=== PATIENT | female | born 1930 | race Caucasian/White ===

== ENCOUNTER 2017-04-08 23:57 | Inpatient (IN) | payer OTHER ==
[~2017-04-08] VITALS: Ht 154.9 cm; Wt 50.7 kg
[2017-04-09] VITALS (12 sets, daily range): BP systolic 97–167; BP diastolic 50–78; PULSE 72–83; RESP 16–20; TEMP 98.5; Ht 154.9 cm; Wt 50.7 kg
[2017-04-09 00:45] LABS: BASOPHILS % 0.2 % (0.0-2.0); EOSINOPHILS # 0.1 10^3/ul (0.0-0.5); EOSINOPHILS % 0.8 % (0.0-7.0); HEMATOCRIT 40.9 % (37.0-47.0); HEMOGLOBIN 13.3 g/dl (12.0-16.0); LYMPHOCYTES # 1.4 10^3/ul (0.8-2.9); LYMPHOCYTES % 13.6 % (15.0-51.0); MEAN CORPUSCULAR HGB CONC 32.5 g/dl (32.0-37.0); MEAN CORPUSCULAR VOLUME 92.3 fl (82.0-101.0); MONOCYTE # 0.8 10^3/ul (0.3-0.9); NEUTROPHIL # 8.1 10^3/ul (1.6-7.5); NEUTROPHILS % 76.8 % (39.0-77.0); PLATELET COUNT 272 10^3/UL (140-415); RED BLOOD COUNT 4.43 10^6/ul (4.20-5.40); WHITE BLOOD COUNT 10.5 10^3/ul (4.8-10.8)
[2017-04-09 01:21] LABS: ANION GAP 16 (8-16); BLOOD UREA NITROGEN 13 mg/dl (7-20); CALCIUM 9.9 mg/dl (8.4-10.2); CARBON DIOXIDE 27 mmol/L (21-31); CHLORIDE 100 mmol/L (97-110); CREATININE 0.87 mg/dl (0.44-1.00); GLUCOSE 179 mg/dl (70-220); SODIUM 139 mmol/L (135-144)
[2017-04-09 01:31] LABS: TROPONIN-I < 0.012 ng/ml (0.00-0.12)
[2017-04-09] MEDS ORDERED: DEXTROSE 50% 50 ML SYRINGE IV ONE (02:00)
[2017-04-09] MEDS: DEXTROSE 5%-0.45% NACL 1,000 ML IV SCH ×2 (02:17→09:24)
[2017-04-09 02:51] LABS: ADD UMIC YES; UR ASCORBIC ACID NEGATIVE (NEGATIVE); UR BACTERIA FEW /HPF (NONE SEEN); UR BILIRUBIN (Dip) NEGATIVE (NEGATIVE); UR BLOOD (Dip) NEGATIVE (NEGATIVE); UR CLARITY CLEAR (CLEAR); UR COLOR YELLOW (YELLOW); UR GLUCOSE (Dip) 2+ mg/dL (NEGATIVE); UR KETONES (Dip) NEGATIVE (NEGATIVE); UR LEUKOCYTE ESTERASE (Dip) 3+ Leu/ul (NEGATIVE); UR NITRITE (Dip) NEGATIVE (NEGATIVE); UR RBC 2 /HPF (0-5); UR SPECIFIC GRAVITY (Dip) 1.006 (1.003-1.030); UR SQUAMOUS EPITHELIAL CELL FEW /HPF (FEW); UR TOTAL PROTEIN (Dip) NEGATIVE (NEGATIVE); UR UROBILINOGEN (Dip) NEGATIVE (NEGATIVE)
--- NOTE | 2017-04-09 03:19 | HP ---
Date/Time of Note Date/Time of Note DATE: 04/09/17 TIME: 03:12 Assessment/Plan VTE Prophylaxis VTE Prophylaxis Intervention: SCD's Assessment/Plan Chief Complaint/Hosp Course This is a 87-year-old female being admitted to the ICU floor for: #1 altered level of consciousness: Likely secondary to hypoglycemia and/or underlying urinary tract infection. Patient does appear to be having a poor appetite and continuing to take her diabetes medications. At the current time we will need to monitor her diet as well as her daily medication routine. Based on patient's account of the events he does appear to the patient may have had an episode of loss of consciousness/syncope. At the current time will check a stat CT of the head without contrast. Will check a echocardiogram. As well as carotid Dopplers. Will monitor patient's blood sugars every 1 hours. Will put patient on hypoglycemia protocol. #2 diabetes mellitus: We will check hemoglobin A1c, please see #1 for further information. Will hold patient's metformin and sulfonylureas at the current time. #3 asthma: We will resume patient's home inhalers #4 DVT GI prophylaxis: SCDs, Protonix Further treatment strategy will be implemented as per the clinical course Problems: HPI/ROS Admit Date/Time Admit Date/Time Hx of Present Illness Chief complaint: Low blood sugar, LOC This is a 87-year-old female who presents today to the emergency department status post low blood sugars in LOC. Patient at the bedside states that her family told her that they noticed her being more lethargic and weak and that she was not responding at home and had low blood sugars and the paramedics were called. Patient on the ambulance ride over here became more aware and conscious when asked where she was going and she was told she was taken to the hospital because of low blood sugars. Patient states that she has had a poor appetite over the last few days however she does still to continue to take her diabetes medications on a regular basis. Apparently she states that her family reported that she was not responding to them and she was foaming at the mouth. Patient denies any chest pain or shortness of breath or fevers. Again patient does report that she has had a poor appetite over the last few days however she is to continue to take her medication. Allergies: NKDA Medications: See MICHELE ABBASI Const: Per HPI Eyes : No pain discharge or redness or change in visual acuity ENT: No pain, sore throat, congestion, congestion, dysphagia or discharge Respiratory: No shortness of breath, cough, sputum, wheezing, or pleuritic pain Cardiovascular: No chest pain, palpitation, PND, or edema GI : no change in appetite, abdominal pain, nausea, vomiting, diarrhea, constipation, or change in the color his stool Genitourinary: No dysuria, hematuria, flank pain , discharge or CVA tenderness Musculoskeletal: No joint pain, back pain, neck pain, restricted range of motion in neck or joints Skin: No rash, bruising or hives Neuro: As per HPI Endocrine: As per HPI Psych: No hallucination, depression, anxiety or suicidal ideation PMH/Family/Social Past Medical History Diabetes, asthma, diabetic neuropathy Past Surgical History 1, abdominal surgery? Family History Significant Family History: diabetes Social History Alcohol Use: none Smoking Status: Former smoker (Former heavy smoker.) Drug Use: none Exam/Review of Systems Vital Signs Vitals Vital Signs Date Time Temp Pulse Resp B/P Pulse Ox O2 Delivery O2 Flow Rate FiO2 04/09/17 02:36 98.1 73 16 138/86 100 Exam Exam General: She is a very pleasant female currently lying in bed in no acute distress. She is answering questions appropriately. HEENT: Atraumatic, normocephalic. The pupils are equal, round and reactive. Extraocular motor are intact Neck: Supple with full range of motion. No rigidity or meningismus Chest: Nontender Lungs: Clear to auscultation bilaterally no crackles rales or wheezing Heart: Normal S1-S2, Regular rhythm and rate. No murmur, S3, or S4 Abdomen: Soft , nontender, nondistended , bowel sounds are present. No guarding no rebound tenderness , No masses or organomegaly. No costovertebral temporal angle mass Extremities: Normal to inspection, no edema no cyanosis Neurologic: Normal mental status, speech normal, cranial nerves II through XII are intact, motor and sensory are intact, gait was not assessed secondary to patient's clinical condition. Labs Result Diagram: 04/09/17 0018 04/09/17 0018 Medications Medications Current Medications Dextrose/Sodium Chloride (D5-1/2ns) 1,000 ml @ 150 mls/hr Q6H40M IV Last administered on 04/09/17t 02:17; Admin Dose 150 MLS/HR; Start 04/09/17 at 02: 00 HOSSEIN CLARK Apr 09, 2017 03:19
[2017-04-09] MEDS ORDERED: ONDANSETRON 4 MG TAB PO PRN (03:30)
[2017-04-09] MEDS ORDERED: DEXTROSE 50% 50 ML SYRINGE IV PRN ×3 (03:30→10:00)
[2017-04-09] MEDS ORDERED: GLIP-95 PO (04:13)
[2017-04-09] MEDS ORDERED: METF500T4 PO (04:13)
[2017-04-09] MEDS ORDERED: BECL8.7H NASAL (04:13)
[2017-04-09] MEDS ORDERED: GABA100C14 PO (04:13)
--- NOTE | 2017-04-09 04:29 | ERD ---
ER Documentation Chief Complaint Chief Complaint BIBLeticia RA90 HPI 87-year-old female is brought in for acute altered mental status with almost comatose status with blood sugar of 29. She takes glipizide and metformin. Paramedics gave her D50 which brought her sugar up her mental status improved. States that she felt a little lightheaded and dizzy in the evening as well.. She has been eating a little less. Feels better now. Does feel slightly lightheaded. Denies any chest pain, shortness of breath, fever chills preceding the event. ROS All systems reviewed and are negative except as per history of present illness. Medications Home Meds Reported Medications Metformin* (Glucophage*) 500 Mg Tab, 500 MG PO WITH MEALS, #90 TAB 04/09/17 Glipizide* (Glipizide*) 10 Mg Tablet, 10 MG PO DAILY, TAB 04/09/17 Gabapentin* (Gabapentin*) 100 Mg Capsule, 100 MG PO BID, #90 CAP 04/09/17 Beclomethasone Dipropionate (QNASL) 8.7 Gm Hfa.aer.ad, 2 SPRAYS NASAL DAILY, #1 BOTTLE PER NOSTRIL 04/09/17 Allergies Allergies: Coded Allergies: No Known Allergy (Unverified , 04/09/17) PMhx/Soc Hx Miscellaneous Medical Probl: Yes (DM) Hx Alcohol Use: No Hx Substance Use: No Hx Tobacco Use: Yes Smoking Status: Former smoker (Former heavy smoker.) Physical Exam Vitals Vital Signs Date Time Temp Pulse Resp B/P Pulse Ox O2 Delivery O2 Flow Rate FiO2 04/09/17 03:51 98.5 76 16 152/67 98 Room Air 04/09/17 02:36 98.1 73 16 138/86 100 04/09/17 02:18 98.1 72 18 156/113 100 04/09/17 00:25 97.4 74 16 139/111 04/09/17 00:00 97.4 69 18 203/84 98 Physical Exam Const: [] Mild distress Head: Atraumatic Eyes: Normal Conjunctiva EOMI, PERRLA ENT: Normal External Ears, Nose and Mouth. Neck: Full range of motion..~ No meningismus. Resp: Clear to auscultation bilaterally Cardio: Regular rate and rhythm, no murmurs Abd: Soft, non tender, non distended. Normal bowel sounds Skin: No petechiae or rashes Back: No midline or flank tenderness Ext: No cyanosis, or edema Neur: Awake and alert and oriented 3, cranial 2 through 12 intact, no cerebellar deficits, normal gait Psych: Normal Mood and Affect Result Diagram: 04/09/17 0018 04/09/17 0018 Results 24 hrs Laboratory Tests Test 04/09/17 00:18 04/09/17 00:24 04/09/17 01:33 04/09/17 01:44 White Blood Count 10.510^3/ul Red Blood Count 4.4310^6/ul Hemoglobin 13.3g/dl Hematocrit 40.9% Mean Corpuscular Volume 92.3fl Mean Corpuscular Hemoglobin 30.0pg Mean Corpuscular Hemoglobin Concent 32.5g/dl Red Cell Distribution Width 13.0% Platelet Count 76717^3/UL Mean Platelet Volume 10.0fl Neutrophils % 76.8% Lymphocytes % 13.6% Monocytes % 8.0% Eosinophils % 0.8% Basophils % 0.2% Nucleated Red Blood Cells % 0.0/100WBC Neutrophils # 8.110^3/ul Lymphocytes # 1.410^3/ul Monocytes # 0.810^3/ul Eosinophils # 0.110^3/ul Basophils # 0.010^3/ul Nucleated Red Blood Cells # 0.010^3/ul Sodium Level 139mmol/L Potassium Level 4.0mmol/L Chloride Level 100mmol/L Carbon Dioxide Level 27mmol/L Anion Gap 16 Blood Urea Nitrogen 13mg/dl Creatinine 0.87mg/dl Glucose Level 179mg/dl Calcium Level 9.9mg/dl Troponin I < 0.012ng/ml Bedside Glucose 162mg/dL 92mg/dL Urine Color YELLOW Urine Clarity CLEAR Urine pH 7.0 Urine Specific [place] 1.006 Urine Ketones NEGATIVEmg/dL Urine Nitrite NEGATIVEmg/dL Urine Bilirubin NEGATIVEmg/dL Urine Urobilinogen NEGATIVEmg/dL Urine Leukocyte Esterase 3+Christel/ul Urine Microscopic RBC 2/HPF Urine Microscopic WBC 29/HPF Urine Squamous Epithelial Cells FEW/HPF Urine Bacteria FEW/HPF Urine Hemoglobin NEGATIVEmg/dL Urine Glucose 2+mg/dL Urine Total Protein NEGATIVEmg/dl Test 04/09/17 02:04 04/09/17 02:31 04/09/17 03:46 Bedside Glucose 105mg/dL 133mg/dL 148mg/dL Current Medications Medications (Trade) Dose Ordered Sig/Saul Route PRN Reason Start Time Stop Time Status Last Admin Dose Admin Dextrose 25 ml 25 ml ONCE ONCE IV 04/09/17 02:00 04/09/17 02:01 DC Dextrose/Sodium Chloride (D5-1/2ns) 1,000 ml @ 150 mls/hr Q6H40M IV 04/09/17 02:00 04/09/17 02:17 Ondansetron HCl (Zofran Tab) 4 mg Q6H PRN PO NAUSEA AND/OR VOMITING 04/09/17 03:30 Acetaminophen (Tylenol Liquid) 650 mg Q6H PRN PO PAIN LEVEL 1-3 OR FEVER 04/09/17 03:30 Pantoprazole (Protonix Iv) 40 mg DAILY@06 IV 04/09/17 06:00 Miscellaneous Information (* Miscellaneous Pharmacy Order) HYPOGLYCEMIA PROTOCOL w... ONCE ONCE XX 04/09/17 03:30 04/09/17 03:31 DC Miscellaneous Information (* Miscellaneous Pharmacy Order) Discontinue all previ... ONCE ONCE XX 04/09/17 03:30 04/09/17 03:31 DC Dextrose 25 ml 25 ml Q2 PRN IV DECREASED GLUCOSE 04/09/17 03:30 Ceftriaxone Sodium (Rocephin) 50 ml @ 100 mls/hr Q24H IVPB 04/09/17 04:00 Procedures/MDM Recurrent severe hypoglycemia on sulfonylurea. Severe hypoglycemia initially. Patient ate in the emergency room her blood sugar was up to 163 but it quickly dropped to the 90s. Give her half amp of dextrose and placed on a D5 drip. Cup was done to see if there is any cardiac ischemia as a result of the glucose deprivation. No signs of cardiac ischemia. He is feeling well on D5 drip. Glucose was checked every hour in the emergency room which found a recurrent hypoglycemia. No signs of acute infection. She is going to be admitted to the ICU under Dr. Oquendo. EKG interpretation: Normal sinus rhythm rate 62, low voltage, mild T-wave flattening likely secondary to low voltage, no ST or T-wave changes concerning for acute ischemia. Abnormal EKG hard candy spinner interpretation: Normal sinus rhythm alternating with sinus bradycardia. No arrhythmias Care time greater than 35 minutes: This includes multiple visits patient's bedside for repeat examinations of patient with recurrent hypoglycemia on sulfonylurea, use of D50, use of D5 drip, discussion with patient and admitting doctor, review of chart. This does not include any billable procedures. Departure Diagnosis: Primary Impression: Hypoglycemia secondary to sulfonylurea Additional Impression: Altered level of consciousness Condition: Serious JUDE LAU DO Apr 09, 2017 04:29
--- NOTE | 2017-04-09 05:48 | RADRPT ---
PROCEDURE: CT Brain without contrast. CLINICAL INDICATION: Fainted. Hypoglycemia. TECHNIQUE: CT scan of the brain was performed on a multidetector high-resolution CT scan. Axial im aging was obtained of the brain without contrast administration. Coronal and sagittal reformatted i mages were obtained from the axial source images. Standard CT scan of the head without contrast prot ocols were performed. The total exam CTDI equals 42.16 mGy and the total exam DLP equals 810.25 mGy-cm. One or more of the following dose reduction techniques were used: - Automated exposure control. - Adjustment of the mA and/or kV according to patient size. Use of iterative reconstruction technique. Dicom images are available COMPARISON: None. FINDINGS: The ventricular system and peripheral CSF spaces are proportionately prominent consistent with mild to moderate generalized cerebral volume loss. Extensive periventricular and subcortical deep white m atter changes consistent with chronic microvascular ischemic disease. Removed. Infarct involving the left caudate nucleus. Negative for intracranial masses hemorrhages or midline shift. The argueta-white matter junction is unremarkable. There is hard atherosclerotic plaque involving the cavernous carot id arteries. The bones of the calvarium are intact. The visualized paranasal sinuses and mastoids ar e unremarkable. IMPRESSION: 1. Mild to moderate generalized cerebral volume loss and extensive nonspecific chronic microvascula r ischemic disease. 2. Remote prior infarct left caudate nucleus. 3. Extensive nonspecific chronic microvascular ischemic disease. 4. Negative intracranial masses hemorrhages or midline shift. RPTAT:AAJJ Physician Demetrice Date Time Electronically viewed and signed by Physician Demetrice on 04/09/2017 05:48 BM/
[2017-04-09] MEDS: CEFTRIAXONE 1 GM/50 ML (PMX) 50 ML IVPB SCH (06:36)
[2017-04-09] MEDS: PANTOPRAZOLE 40 MG INJ IV SCH (06:36)
[2017-04-09] MEDS ORDERED: ACCU-CHEK XX SCH (08:00)
[2017-04-09 08:27] LABS: BASOPHILS % 0.2 % (0.0-2.0); EOSINOPHILS % 0.2 % (0.0-7.0); HEMATOCRIT 40.2 % (37.0-47.0); LYMPHOCYTES # 1.9 10^3/ul (0.8-2.9); LYMPHOCYTES % 23.2 % (15.0-51.0); MEAN CORPUSCULAR HEMOGLOBIN 29.9 pg (29.0-33.0); MEAN CORPUSCULAR HGB CONC 32.3 g/dl (32.0-37.0); MEAN CORPUSCULAR VOLUME 92.4 fl (82.0-101.0); MEAN PLATELET VOLUME 10.3 fl (7.4-10.4); MONOCYTE # 0.6 10^3/ul (0.3-0.9); NEUTROPHIL # 5.6 10^3/ul (1.6-7.5); PLATELET COUNT 258 10^3/UL (140-415); RED BLOOD COUNT 4.35 10^6/ul (4.20-5.40); RED CELL DISTRIBUTION WIDTH 13.2 % (11.5-14.5); WHITE BLOOD COUNT 8.2 10^3/ul (4.8-10.8)
[2017-04-09 08:40] LABS: CALCIUM 9.8 mg/dl (8.4-10.2); CREATININE 0.9 mg/dl (0.44-1.00); POTASSIUM 4.4 mmol/L (3.5-5.1)
--- NOTE | 2017-04-09 09:08 | RADRPT ---
PROCEDURE: Carotid ultrasound CLINICAL INDICATION: Syncope, carotid bruits TECHNIQUE: Jackson scale, color doppler, spectral doppler ultrasound of the bilateral carotid and douglas tebral arteries. This study indirectly references the measurement of the distal ICA diameter as the denominator for s tenosis measurement. Validated velocity measurements with angiographic measurements, velocity criter ia are extrapolated from diameter data as defined by: *Cartoid artery stenosis: jackson-scale and Doppl er US diagnosis. Society of Radiologists in Ultrasound Consensus Conference. Radiology 2003; 229: 34 0-346. SRU Consensus Conference Criteria for the Diagnosis of Carotid Artery Stenosis* Degree of Stenosis, % ICA PSV, cm/sec Plaque Estimate, % ICA/CCA PSV Ratio Normal <125 None <2.0 <50 <125 <50 <2.0 50 69 125-230 >50 2.0-4.0 >70 but less than near occlusion >230 >50 <4.0 Near occlusion High, low, or undetectable Visible Variable Total occlusion Undetectable Visible, no detectable lumen Not applicable COMPARISON: No prior studies are available for comparison. FINDINGS: Location Right CCA32 - 57 cm/sec Prox ICA 58 cm/sec Mid ICA43 cm/sec Dist ICA45 cm/sec ECA59 cm/sec ICA/CCA1.5 Left CCA43 - 55 cm/sec Prox ICA 58 cm/sec Mid ICA39 cm/sec Dist ICA45 cm/sec ECA59 cm/sec ICA/CCA1.4 Plaque burden: Calcified plaques present involving the left carotid system. Antegrade flow is seen within the vertebral arteries bilaterally. IMPRESSION: Calcified plaque present within the left internal carotid artery without flow acceleration compatibl e with less than 50% stenosis. No evidence of significant plaque within the right carotid system. RPTAT: AADD .Chad Byers MD, Date Time Electronically viewed and signed by .Chad Byers MD, on 04/09/2017 09:08 .B/
[2017-04-09] MEDS ORDERED: GLUCOSE GEL 15 GRAM TUBE BUCCAL PRN (10:00)
[2017-04-09] MEDS ORDERED: GLUCOSE GEL 15 GRAM TUBE PO PRN ×2 (10:00)
[2017-04-09] MEDS ORDERED: GLUCAGON 1 MG INJ IM PRN (10:00)
[2017-04-09] MEDS: INSULIN ASPART [NOVOLOG] 3 ML PEN SC SCH ×3 (11:40→21:00)
[2017-04-09] MEDS: GABAPENTIN 100 MG CAP PO SCH ×2 (14:18→21:41)
[2017-04-09] MEDS: FLUTICASONE 0.05% 16 GM NAS SPRAY NASAL SCH (17:41)
[2017-04-10] MEDS ORDERED: ACCU-CHEK XX SCH (02:00)
[2017-04-10 03:46] VITALS: BP 132/77; RESP 20
[2017-04-10] MEDS: CEFTRIAXONE 1 GM/50 ML (PMX) 50 ML IVPB SCH (04:29)
[2017-04-10 05:28] LABS: BASOPHILS % 0.6 % (0.0-2.0); EOSINOPHILS # 0.1 10^3/ul (0.0-0.5); EOSINOPHILS % 1.1 % (0.0-7.0); HEMATOCRIT 37.8 % (37.0-47.0); HEMOGLOBIN 12.3 g/dl (12.0-16.0); LYMPHOCYTES # 2.3 10^3/ul (0.8-2.9); LYMPHOCYTES % 36.4 % (15.0-51.0); MEAN CORPUSCULAR HEMOGLOBIN 29.9 pg (29.0-33.0); MEAN CORPUSCULAR HGB CONC 32.5 g/dl (32.0-37.0); MEAN CORPUSCULAR VOLUME 91.7 fl (82.0-101.0); MONOCYTE # 0.5 10^3/ul (0.3-0.9); MONOCYTES % 8.5 % (0.0-11.0); NEUTROPHIL # 3.4 10^3/ul (1.6-7.5); NEUTROPHILS % 53.1 % (39.0-77.0); PLATELET COUNT 245 10^3/UL (140-415); RED BLOOD COUNT 4.12 10^6/ul (4.20-5.40); RED CELL DISTRIBUTION WIDTH 13.4 % (11.5-14.5); WHITE BLOOD COUNT 6.4 10^3/ul (4.8-10.8)
[2017-04-10] MEDS: PANTOPRAZOLE 40 MG INJ IV SCH (05:44)
[2017-04-10 05:58] LABS: ALBUMIN 3.7 g/dl (3.3-4.9); BILIRUBIN,INDIRECT 0.3 mg/dl (0-1.1); BILIRUBIN,TOTAL 0.3 mg/dl (0.2-1.3); CALCIUM 9.6 mg/dl (8.4-10.2); CREATININE 1.06 mg/dl (0.44-1.00); MAGNESIUM 1.9 mg/dl (1.7-2.5); PHOSPHORUS 3.5 mg/dl (2.5-4.9); POTASSIUM 4.3 mmol/L (3.5-5.1)
[2017-04-10 06:23] LABS: THYROID STIMULATING HORMONE 1.07 MIU/L (0.465-4.680)
[2017-04-10] MEDS: INSULIN ASPART [NOVOLOG] 3 ML PEN SC SCH ×2 (07:50→11:40)
[2017-04-10 07:51] VITALS: BP 114/54; RESP 20
[2017-04-10 07:56] VITALS: BP 154/67; RESP 20
[2017-04-10] MEDS: GABAPENTIN 100 MG CAP PO SCH (08:41)
[2017-04-10] MEDS: ACETAMINOPHEN 650MG/20.3ML CUP PO PRN ×2 (08:42→16:37)
[2017-04-10] MEDS: FLUTICASONE 0.05% 16 GM NAS SPRAY NASAL SCH (08:44)
--- NOTE | 2017-04-10 09:02 | RADRPT ---
Echocardiogram Report Patient Name: GISELA PINEDA Gender: Female Date: 1930 Study Date: 09-Apr-2017 [employer] Teacher: MAUREEN Location: 107 Ref. Physician: HOSSEIN CLARK Quality: Good Procedures: Transthoracic echocardiogram with complete 2D, M-Mode, and doppler examination. Indications: Syncope. 2D/M Mode Doppler Measurement Value Normal Ranges Measurement Value Normal Ranges AoR Diam MM 2.8 cm SOLIS Vmax 2.3 cm2 ACS MM 1.8 cm SOLIS VTI 2.3 cm2 LA/Ao MM 1.0 AV Mean [place] 0.8 m/sec LA Dimen MM 2.8 cm AV Mean PG 2.4 mmHg LVIDd 2D 3.9 3.5 - 5.6 cm AV Peak [place] 1.0 m/sec LVIDs 2D 2.9 2.1 - 4.1 cm AV Peak PG 3.6 mmHg LVPWd 2D 1.0 0.6 - 1.1 cm AV VTI 21.7 cm IVSd 2D 1.0 0.6 - 1.1 cm LVOT Peak [place] 0.8 m/sec EDV 2D 64.2 cm3 LVOT Peak PG 2.7 mmHg ESV 2D 24.2 cm3 MV E Peak [place] 0.7 m/sec EF 2D 50.0 50.0 - 65.0 % MV A Peak [place] 1.0 m/sec LVOT Diam 1.8 cm MV E/A 0.7 MV Decel Time 180 msec MV Decel [place] 4 MV E/A 0.7 Findings Left Ventricle: Normal left ventricular systolic function. Normal left ventricular cavity size. Normal left ventricular wall thickness. Ejection fraction is visually estimated at 55 %. Tissue Doppler/Mitral Doppler indices are consistent with impaired relaxation (Stage I diastolic dysfunction). Right Ventricle: Normal right ventricular size. Normal right ventricular systolic function. Left Atrium: There is mild enlargement of left atrium. Right Atrium: The right atrium is normal in size. Mitral Valve: Normal appearance and function of the mitral valve with trace physiologic regurgitation. Aortic Valve: Normal appearance of the aortic valve. No significant aortic stenosis or insufficiency. Tricuspid Valve: Normal appearance and function of the tricuspid valve with trace physiologic regurgitation. Unable to obtain RVSP due to minimal presence of tricuspid regurgitation. Pulmonic Valve: Normal pulmonic valve appearance. Pericardium: Normal pericardium with no significant pericardial effusion. Aorta: Normal aortic root. IVC: Normal size and normal respiratory collapse consistent with normal right atrial pressure. Conclusions Normal left ventricular systolic function. Normal left ventricular cavity size. Normal left ventricular wall thickness. Ejection fraction is visually estimated at 55 %. Tissue Doppler/Mitral Doppler indices are consistent with impaired relaxation (Stage I diastolic dysfunction). No significant valvular stenosis or regurgitation seen. Unable to obtain RVSP due to minimal presence of tricuspid regurgitation. Normal size and normal respiratory collapse consistent with normal right atrial pressure. Electronically Signed By: Josemanuel Valencia 10-Apr-2017 09:01:46 -0800 Patient Name: GISELA PINEDA Study Date: 09-Apr-[id number]
--- NOTE | 2017-04-10 10:30 | PN ---
Date/Time of Note Date/Time of Note DATE: 04/10/17 TIME: 10:22 Assessment/Plan VTE Prophylaxis VTE Prophylaxis Intervention: SCD's Lines/Catheters IV Catheter Type (from Nrs): Saline Lock Assessment/Plan Assessment/Plan This is a 87-year-old female being admitted to the ICU floor for: #1 altered level of consciousness 2/2 hypoglycemia from sulfonylurea use: resolved #2 diabetes mellitus: HBA1C 6.O #3 asthma: We will resume patient's home inhalers #4 UTI: Gram neg rods: f/u final ID and sensitivity D/c on abx and off hypoglycemics for diet control only for now and close outpt f/u with PCP Subjective 24 Hr Interval Summary Free Text/Dictation Doing much better Exam/Review of Systems Vital Signs Vitals Vital Signs Date Time Temp Pulse Resp B/P Pulse Ox O2 Delivery O2 Flow Rate FiO2 04/10/17 07:56 97.5 63 20 154/67 96 04/09/17 10:00 Room Air Intake and Output 04/09/17 04/09/17 04/10/17 15:00 23:00 07:00 Intake Total 620 ml 420 ml 850 ml Output Total 300 ml 900 ml 1200 ml Balance 320 ml -480 ml -350 ml Exam Constitutional: alert, frail, oriented, No distress Head: normocephalic Eyes: PERRL ENMT: mucosa pink and moist Neck: supple Respiratory: clear to auscultation, No labored breathing Cardiovascular: regular rate and rhythm, No murmurs/extra sounds Gastrointestinal: bowel sounds, non-tender, soft Extremities: No edema Neurological: nl mental status Additional Comments Said to be ambulance with minimal assist Results Result Diagram: 04/10/17 0502 04/10/17 0502 Results 24 hrs Laboratory Tests Test 04/09/17 13:23 04/09/17 17:44 04/09/17 21:40 04/10/17 05:02 Bedside Glucose 115 120 107 White Blood Count 6.4 # Red Blood Count 4.12 L Hemoglobin 12.3 Hematocrit 37.8 Mean Corpuscular Volume 91.7 Mean Corpuscular Hemoglobin 29.9 Mean Corpuscular Hemoglobin Concent 32.5 Red Cell Distribution Width 13.4 Platelet Count 245 Mean Platelet Volume 10.0 Neutrophils % 53.1 Lymphocytes % 36.4 Monocytes % 8.5 Eosinophils % 1.1 Basophils % 0.6 Nucleated Red Blood Cells % 0.0 Neutrophils # 3.4 Lymphocytes # 2.3 Monocytes # 0.5 Eosinophils # 0.1 Basophils # 0.0 Nucleated Red Blood Cells # 0.0 Sodium Level 141 Potassium Level 4.3 Chloride Level 106 Carbon Dioxide Level 26 Anion Gap 13 Blood Urea Nitrogen 14 Creatinine 1.06 H Glucose Level 132 Calcium Level 9.6 Phosphorus Level 3.5 Magnesium Level 1.9 Total Bilirubin 0.3 Direct Bilirubin 0.00 Indirect Bilirubin 0.3 Aspartate Amino Transf (AST/SGOT) 29 Alanine Aminotransferase (ALT/SGPT) 33 Alkaline Phosphatase 76 Total Protein 7.0 Albumin 3.7 Thyroid Stimulating Hormone (TSH) 1.070 Test 04/10/17 08:43 Bedside Glucose 119 Medications Medications Current Medications Ondansetron HCl (Zofran Tab) 4 mg Q6H PRN PO NAUSEA AND/OR VOMITING; Start at 03:30 Acetaminophen (Tylenol Liquid) 650 mg Q6H PRN PO PAIN LEVEL 1-3 OR FEVER Last administered on 04/10/17 08:42; Admin Dose 650 MG; Start 04/09/17 at 03:30 Pantoprazole 40 mg 40 mg DAILY@06 IV Last administered on 04/10/17 05:44; Admin Dose 40 MG; Start 04/09/17 at 06:00 Ceftriaxone Sodium (Rocephin) 50 ml @ 100 mls/hr Q24H IVPB Last administered on 04/10/17 04:29; Admin Dose 100 MLS/HR; Start 04/09/17 at 04:00 Diagnostic Test (Pha) (Accu-Chek) 1 ea 02 XX ; Start 04/10/17 at 02:00 Miscellaneous Information 1 ea NOTE XX ; Start 04/09/17 at 10:00 Glucose (Glutose) 15 gm Q15M PRN PO DECREASED GLUCOSE; Start 04/09/17 at 10:00 Glucose (Glutose) 22.5 gm Q15M PRN PO DECREASED GLUCOSE; Start 04/09/17 at 10: 00 Dextrose (D50w Syringe) 25 ml Q15M PRN IV DECREASED GLUCOSE; Start 04/09/17 at 10:00 Dextrose (D50w Syringe) 50 ml Q15M PRN IV DECREASED GLUCOSE; Start 04/09/17 at 10:00 Glucagon (Glucagen) 1 mg Q15M PRN IM DECREASED GLUCOSE; Start 04/09/17 at 10: 00 Glucose (Glutose) 15 gm Q15M PRN BUCCAL DECREASED GLUCOSE; Start 04/09/17 at 10:00 Fluticasone Propionate (Flonase 0.05% Nasal) 2 spray DAILY NASAL Last administered on 04/10/17 08:44; Admin Dose 2 SPRAY; Start 04/09/17 at 16:00 Gabapentin (Neurontin) 100 mg BID PO Last administered on 04/10/17 08:41; Admin Dose 100 MG; Start 04/09/17 at 13:00 PAULINE CANTU Apr 10, 2017 10:30
[2017-04-10] MEDS ORDERED: AMOX1TAB9 PO (14:17)
--- NOTE | 2017-04-10 14:21 | PDOCDIS ---
Discharge Instructions DIAGNOSIS Discharge Diagnosis Hypoglycemia Urinary tract infection CONDITION Patient Condition: Stable ACTIVITY: Activity Restrictions: Slowly Increase Activity Rest between Activity OTHER ORDERS: Other Orders: * Quit alcohol use and tobacco use * Stop taking your diabetic medicines for now * See your primary care doctor as soon as possible * Review your medication list with your nurse before leaving and if you need new prescriptions please let your nurse know. * I have made changes to your home medications or given you new prescriptions, please let your primary doctor know as well. * Stay compliant with your medications and report any side effects to your PCP or pharmacist. * Return to the ER if you have any concerns and cannot reach your doctors or call your insurance company, they usually have a nurse that can help you. PAULINE CANTU. Apr 10, 2017 14:21
--- NOTE | 2017-04-10 14:26 | DS ---
Date/Time of Note Date/Time of Note DATE: 04/10/17 TIME: 14:21 Discharge Summary Admission/Discharge Info Admit Date/Time Apr 09, 2017 at 02:30 Discharge Date/Time Discharge Diagnosis #1 altered level of consciousness 2/2 hypoglycemia from sulfonylurea use: resolved #2 diabetes mellitus: HBA1C 6.O #3 asthma: We will resume patient's home inhalers #4 Gram negative UTI #5: Patient also just picked up the habit of drinking beer and smoking tobacco per family: counselled to quit . Procedures See hospital course . Hospital Course 87-year-old female who was brought in for altered level of consciousness and was found to be persistently hypoglycemic in the emergency room. 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 She was initially admitted to the intensive care unit for close monitoring. However just with fluid therapy and hydration her mental status improved and is doing a urinalysis came back highly suggestive of a urinary tract infection and she was empirically started on antibiotics for that cultures grew gram-negative rods. She has done well and all her oral hypoglycemics were held. Of note is that patient is on glipizide and metformin. Also family tells us that the patient recently become a habit of drinking beer and smoking cigarettes even while staying compliant with her medication and her appetite has also weaned. This could be secondary to the underlying infection however at this time to be on the safe side patient is being discharged off all hypoglycemics, and I recommended that she follow-up with her primary care physician within the next 1 week for continued management. In-house, patient has done well despite no hypoglycemics, hemoglobin A1c came back at 6.0 which is great, hence at this time no oral hypoglycemics as necessary, patient to be discharged on diet control only. He has a communicated in detail to the patient with the help of a [place] speaking hourly sign language interpreter and have also communicated this to the patient's grandson in detail. Also encouraged patient not to drink alcohol with her medications. However the patient is 87 years old, I am not sure how compliant she will be. . Home Meds Reported Medications Metformin* (Glucophage*) 500 Mg Tab, 500 MG PO WITH MEALS, #90 TAB 04/09/17 Glipizide* (Glipizide*) 10 Mg Tablet, 10 MG PO DAILY, TAB 04/09/17 Gabapentin* (Gabapentin*) 100 Mg Capsule, 100 MG PO BID, #90 CAP 04/09/17 Beclomethasone Dipropionate (QNASL) 8.7 Gm Hfa.aer.ad, 2 SPRAYS NASAL DAILY, #1 BOTTLE PER NOSTRIL 04/09/17 Follow-up Plan See hospital course . Primary Care Provider Time spent on discharge: > 30 minutes Pending Labs Laboratory Tests Test 04/09/17 17:44 04/09/17 21:40 04/10/17 05:02 04/10/17 08:43 Bedside Glucose 120mg/dL (70-220) 107mg/dL (70-220) 119mg/dL (70-220) White Blood Count 6.410^3/ul (4.8-10.8) Red Blood Count 4.1210^6/ul (4.20-5.40) Hemoglobin 12.3g/dl (12.0-16.0) Hematocrit 37.8% (37.0-47.0) Mean Corpuscular Volume 91.7fl (82.0-101.0) Mean Corpuscular Hemoglobin 29.9pg (29.0-33.0) Mean Corpuscular Hemoglobin Concent 32.5g/dl (32.0-37.0) Red Cell Distribution Width 13.4% (11.5-14.5) Platelet Count 66441^3/UL (140-415) Mean Platelet Volume 10.0fl (7.4-10.4) Neutrophils % 53.1% (39.0-77.0) Lymphocytes % 36.4% (15.0-51.0) Monocytes % 8.5% (0.0-11.0) Eosinophils % 1.1% (0.0-7.0) Basophils % 0.6% (0.0-2.0) Nucleated Red Blood Cells % 0.0/100WBC (0.0-0.0) Neutrophils # 3.410^3/ul (1.6-7.5) Lymphocytes # 2.310^3/ul (0.8-2.9) Monocytes # 0.510^3/ul (0.3-0.9) Eosinophils # 0.110^3/ul (0.0-0.5) Basophils # 0.010^3/ul (0.0-0.1) Nucleated Red Blood Cells # 0.010^3/ul (0.0-0.0) Sodium Level 141mmol/L (135-144) Potassium Level 4.3mmol/L (3.5-5.1) Chloride Level 106mmol/L (97-110) Carbon Dioxide Level 26mmol/L (21-31) Anion Gap 13 (8-16) Blood Urea Nitrogen 14mg/dl (7-20) Creatinine 1.06mg/dl (0.44-1.00) Glucose Level 132mg/dl (70-220) Calcium Level 9.6mg/dl (8.4-10.2) Phosphorus Level 3.5mg/dl (2.5-4.9) Magnesium Level 1.9mg/dl (1.7-2.5) Total Bilirubin 0.3mg/dl (0.2-1.3) Direct Bilirubin 0.00mg/dl (0.00-0.20) Indirect Bilirubin 0.3mg/dl (0-1.1) Aspartate Amino Transf (AST/SGOT) 29IU/L (15-46) Alanine Aminotransferase (ALT/SGPT) 33IU/L (13-69) Alkaline Phosphatase 76IU/L (42-121) Total Protein 7.0g/dl (6.1-8.1) Albumin 3.7g/dl (3.3-4.9) Thyroid Stimulating Hormone (TSH) 1.070MIU/L (0.465-4.680) Test 04/10/17 12:23 Bedside Glucose 118mg/dL (70-220) PAULINE CANTU Apr 10, 2017 14:25
== END 2017-04-10 17:00 | disposition home or self-care (01) | DRG 638 ==
LOC: EDBD 23:57 → E/R 23:57 → ICU 04-09 02:30 → MERGE 04-09 02:30 → MS1 04-09 09:56
PROVIDERS: ADMIT Family Medicine; ATTEND Family Medicine
DX: E11.649 Type 2 diabetes mellitus with hypoglycemia without coma (principal); N39.0 Urinary tract infection, site not specified; B96.89 Other specified bacterial agents as the cause of diseases classified elsewhere; J45.909 Unspecified asthma, uncomplicated; Z87.891 Personal history of nicotine dependence; T38.3X5A Adverse effect of insulin and oral hypoglycemic [antidiabetic] drugs, initial encounter
CPT/HCPCS: 36415; 70450; 80048; 80076; 81001; 82962; 83036; 83735; 84100; 84443; 84484; 85025; 87081; 87086; 93005; 93306; 93880; C9113; J0696; J1815; J7042

== ENCOUNTER 2017-06-05 16:25 | Inpatient (IN) | END 2017-06-07 17:30 | disposition home health service (06) | DRG 637 ==